=== PATIENT | male | born 1975 | race Two or more races ===

== ENCOUNTER 2019-08-21 01:48 | Emergency (ER) | payer SELFPAY ==
[2019-08-21] MEDS ORDERED: IV NORMAL SALINE 1000ML BAG 1,000 ML IV SCH (02:23)
[2019-08-21] MEDS ORDERED: KETOROLAC 15 MG/ML VIAL. IVP ONE (02:23)
[2019-08-21] MEDS ORDERED: FAMOTIDINE 20 MG/2 ML VIAL IVP ONE (02:23)
[2019-08-21] MEDS ORDERED: ONDANSETRON PF 4 MG/2 ML VIAL. IVP ONE (02:23)
--- NOTE | 2019-08-21 05:22 | RAD ---
PQRS Compliance Statement: One or more of the following individualized dose reduction techniques were utilized for this examination: 1. Automated exposure control 2. Adjustment of the mA and/or kV according to patient size 3. Use of iterative reconstruction technique CT ABDOMEN PELVIS WO CONTRAST Clinical Indication: Right flank pain and hematuria. Comparison: None. Technique: Helical CT imaging of the abdomen and pelvis is performed without IV or oral contrast. Findings: Evaluation of solid organs and bowel is limited without oral and IV contrast, decreasing sensitivity for detection of pathology. There is a 4 mm groundglass nodule in the medial right lower lobe, image 29. No follow-up is required per Fleischner Society guidelines. There is minimal scarring or discoid atelectasis in the lateral left lower lobe. Lung bases are otherwise clear. Cardiac size normal. The liver, gallbladder, spleen, pancreas, adrenal glands, and abdominal aorta caliber are normal. There is no hydronephrosis or perinephric stranding. There is no renal, ureteral, or bladder calculus. No obvious abnormality of the stomach. There is no dilated small bowel. The appendix is normal. Short segment of the proximal sigmoid colon is decompressed, may be due to peristalsis. No wall thickening of this segment is seen. No colon wall thickening is identified. There is scattered stool in the colon. There is no abdominal adenopathy or free fluid. Urinary bladder is normal. The prostate and seminal vesicles are normal. There is no pelvic free fluid. There is bilateral L5 spondylolysis. There is minimal grade 1 anterolisthesis of L5 on S1. There is minimal grade 1 retrolisthesis of L4 on L5. IMPRESSION: No acute abdominal or pelvic abnormality. No obstructive uropathy. Electronically signed by: Delbert Garcia MD (08/21/2019 5:19 AM) [id number]
[2019-08-21] MEDS ORDERED: ONDA4TAB12 PO (05:36)
[2019-08-21] MEDS ORDERED: HYDR-3164 PO (05:36)
[2019-08-21] MEDS ORDERED: FAMO-63 PO (05:36)
--- NOTE | 2019-08-21 06:52 | EKG ---
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
--- NOTE | 2019-08-21 07:56 | RAD ---
ABDOMEN LTD History: Right upper quadrant pain Comparison: CT August 21, 2019. Technique: Transabdominal ultrasound images are obtained of the right upper quadrant. Findings: Visualized pancreas is normal seen due to overlying bowel gas. Liver is increased in echogenicity. Right hepatic lobe measures 17.4 cm. Portal flow is hepatopedal. Cholelithiasis. No gallbladder wall thickening. No pericholecystic fluid. Gallbladder sludge. Common bile duct measures 4 mm in diameter. The right kidney measures 12.0 x 5.1 x 5.0 cm. No hydronephrosis. Normal caliber IVC. IMPRESSION: 1. Cholelithiasis and gallbladder sludge. 2. Increased hepatic echotexture, may indicate steatosis. Electronically signed by: Ramon Beckwith DO (08/21/2019 7:53 AM) [id number]
[2019-08-21 08:25] LABS: ALBUMIN 3.8 g/dL (3.4-5.0); CALCIUM 8.6 mg/dL (8.5-10.1); DIRECT BILIRUBIN 0.1 mg/dL (0.0-0.2); GFR 81.6; POTASSIUM 3.5 mmol/L (3.5-5.1); TOTAL BILIRUBIN 0.4 mg/dL (0.2-1.0); TOTAL PROTEIN 7.7 g/dL (6.4-8.2)
[2019-08-21 09:02] LABS: BASO % 0 % (0-3); EOS % 0 % (0-3); HEMATOCRIT 47.5 % (39.0-53.0); HEMOGLOBIN 16.3 g/dL (13.0-17.5); LYMPH # 1.6 x10^3/uL (1.0-4.8); LYMPH % 12 % (24-48); MEAN CORPUSCULAR HEMOGLOBIN 28 pg (25-35); MEAN CORPUSCULAR HGB CONC 34 g/dL (31-37); MEAN CORPUSCULAR VOLUME 82 fL (79-100); MONO # 0.3 x10^3/uL (0.0-1.1); MONO % 2 % (0-9); NEUT # 10.6 x10^3/uL (1.8-7.7); NEUT % 85 % (31-73); PLATELET COUNT 244 x10^3/uL (140-400); RED BLOOD COUNT 5.82 x10^6/uL (4.30-5.70); RED CELL DISTRIBUTION WIDTH 14.3 % (11.5-14.5); WHITE BLOOD COUNT 12.5 x10^3/uL (4.0-11.0)
[2019-08-21 09:05] LABS: PROTHROMBIN TIME PATIENT 12.3 SEC (11.7-14.0)
[2019-08-21 09:10] LABS: BILIRUBIN,URINE NEGATIVE (NEG); CLARITY,URINE CLEAR; COLOR,URINE YELLOW
[2019-08-21 09:11] LABS: BACTERIA,URINE 0 /HPF (0-FEW); NITRITE,URINE NEGATIVE (NEG); PROTEIN,URINE 100 mg/dL (NEG-TRACE); RBC,URINE 20-40 /HPF (0-2); WBC,URINE RARE /HPF (0-4)
== END 2019-08-21 05:45 | disposition home or self-care (01) ==
LOC: ER 01:48
DX: K80.20 Calculus of gallbladder without cholecystitis without obstruction (principal); R10.11 Right upper quadrant pain; R11.0 Nausea; I10 Essential (primary) hypertension; I97.821 Postprocedural cerebrovascular infarction following other surgery
CPT/HCPCS: 36415; 74176; 76705; 80048; 80076; 81001; 83690; 83735; 84484; 85025; 85610; 85730; 93005; 99285; J1885; J2405; J3490; J7030